=== PATIENT | male | born 1960 | race Caucasian/White ===

== ENCOUNTER 2020-03-10 07:49 | Inpatient (IN) | payer MEDICAID ==
[~2020-03-10] VITALS: Ht 185.4 cm; Wt 70.7 kg
[2020-03-10] MEDS ORDERED: ketorolac tromethamine 15mg/ml inj. IV ONE (08:55)
[2020-03-10] MEDS ORDERED: normal saline 1000ML IV soln IVB ONE (08:55)
[2020-03-10] MEDS ORDERED: ondansetron/PF 4mg/2ml inj IV ONE (08:55)
[2020-03-10 09:12] LABS: BASOPHILS # (AUTO) 0.1 X10'3 (0-0.2); BASOPHILS % (AUTO) 0.4 % (0-1); EOSINOPHILS % (AUTO) 0.2 % (0-6); HEMATOCRIT 43.8 % (42.0-52.0); HEMOGLOBIN 14.7 g/dl (14.0-17.9); LYMPHOCYTES # (AUTO) 0.9 X10'3 (1.1-4.8); LYMPHOCYTES % (AUTO) 4.6 % (21-51); MEAN CORPUSCULAR HGB CONC 33.6 g/dL (33.0-36.5); MEAN CORPUSCULAR VOLUME 92.2 FL (78-98); MONOCYTES # (AUTO) 0.8 X10'3 (0-0.9); MONOCYTES % (AUTO) 3.8 % (2-12); PLATELET COUNT 356 X10'3 (140-440); RED BLOOD COUNT 4.75 X10'6 (4.70-6.10); RED CELL DISTRIBUTION WIDTH 14.6 % (11.5-14.5); WHITE BLOOD COUNT 19.8 X10'3 (4.5-11.0)
[2020-03-10 09:31] LABS: ALANINE AMINOTRANSFERASE 28 U/L (12-78); ALBUMIN 3.5 G/DL (3.4-5.0); ALBUMIN/GLOBULIN RATIO 1.3 (1.1-1.5); ALKALINE PHOSPHATASE 67 IU/L (46-116); ANION GAP 10 (8-16); ASPARTATE AMINO TRANSFERASE 13 U/L (10-37); BILIRUBIN,TOTAL 0.7 MG/DL (0.1-1.0); BLOOD UREA NITROGEN 24 MG/DL (7-18); BUN/CREATININE RATIO 25.5 (5.4-32.0); CALCIUM 8.4 MG/DL (8.5-10.1); CHLORIDE 99 MMOL/L (99-107); CREATININE 0.94 MG/DL (0.60-1.10); GLUCOSE 152 MG/DL (70-104); LIPASE 571 U/L (73-393); POTASSIUM 3.5 MMOL/L (3.5-5.1); SODIUM 135 MMOL/L (135-145); TOTAL CARBON DIOXIDE 25.6 MMOL/L (24-32); TOTAL PROTEIN 6.3 G/DL (6.4-8.2); eGFR 82 ML/MIN
[2020-03-10] MEDS ORDERED: LIDOcaine Viscous 15ml cup MM PRN (10:20)
[2020-03-10] MEDS: morphine 2 MG/ML inj. syringe IV PRN ×3 (10:28→15:25)
[2020-03-10] MEDS ORDERED: MIDAZolam 5mg/ml 2ml vial IV ONE (10:40)
[2020-03-10] MEDS ORDERED: metroNIDAZOLE-Flagyl 500mg/NS 100 ML IV STA (11:15)
[2020-03-10] MEDS ORDERED: ciprofloxacin lact 400MG/200ML 200 ML IV STA (11:15)
[2020-03-10] MEDS ORDERED: magnesium hydroxide 30ml (MOM) UD suspension PO PRN (12:10)
[2020-03-10] MEDS ORDERED: morphine 2 MG/ML inj. syringe IV PRN (12:10)
[2020-03-10] MEDS ORDERED: acetaminophen 325mg tablet PO PRN (12:10)
--- NOTE | 2020-03-10 12:36 | NUR ---
RELIEVING RN FOR BREAK, PT IS SLEEPING QUIETLY ON GURNEY, RESP EVEN AND UNLABORED, PT IS EASILY AROUSEABLE, NGTUBE CONNECTED TO LOW INTERMITTMENT SUCTION, DRAINING LIGHT BROWN FLUID, SR ON THE MONITOR, NO ECTOPY, WAITING TO BE EVALUATED
[2020-03-10] MEDS: normal saline 1000ml 1,000 ML IV SCH ×2 (12:46→22:06)
[2020-03-10] MEDS ORDERED: CIME300T PO (13:09)
[2020-03-10] MEDS ORDERED: SERT25TA5 PO (13:09)
[2020-03-10] MEDS ORDERED: GABA300C PO (13:09)
[2020-03-10] MEDS ORDERED: DICY20TA11 PO (13:09)
[2020-03-10] MEDS ORDERED: PRED10TA23 PO (13:09)
--- NOTE | 2020-03-10 14:26 | NUR ---
Assumed care of patient, arrived in stable condition. Obtained vital signs, 2 RN skin check completed. Placed on tele and hooked up to low intermitten suction. Will continue to monitor closely.
[2020-03-10 14:28] VITALS: BP 127/68
[2020-03-10 15:00] VITALS: BP 103/76
[2020-03-10] MEDS: metroNIDAZOLE-Flagyl 500mg/NS 100 ML IV SCH (15:24)
[2020-03-10] MEDS ORDERED: famotidine 20mg tablet PO SCH (17:30)
--- NOTE | 2020-03-10 17:40 | NUR ---
PAGER ID: [phone] MESSAGE: [phone] Zeus Valentina - Requesting sleeping med for tonight. Did you mean to put pepcid PO? Michelle SHOEMAKER [id number]
--- NOTE | 2020-03-10 17:56 | NUR ---
PAGER ID: [phone] MESSAGE: [id number] Zeusjocy Montgomery - Requesting sleeping med for tonight. Did you mean to put pepcid PO or do you want IV? Michelle SHOEMAKER [phone]
[2020-03-10 18:00] VITALS: BP 110/74
--- NOTE | 2020-03-10 18:14 | NUR ---
Patient is sleeping at the moment. NG is draining appropriately. Pepcid not administered as nursing needs clarification on route. MD paged X2, will report to NOC nurse and clarify with night time MD since no return call.
--- NOTE | 2020-03-10 18:36 | NUR ---
Problems reprioritized. Patient report given, questions answered & plan of care reviewed with Karen SHOEMAKER. Pt. talking on cell phone, offers no others complaints.
[2020-03-10 19:37] LABS: CLARITY,URINE CLEAR (Clear); COLOR,URINE YELLOW (Yellow); GLUCOSE, URINE NEGATIVE (Neg); KETONES,URINE 15 mg/dl (Neg); LEUKOCYTE ESTERASE ,URINE TRACE (Neg); NITRITES, URINE NEGATIVE (Neg); OCCULT BLOOD,URINE NEGATIVE (Neg); PROTEIN,URINE NEGATIVE (Neg)
[2020-03-10 19:42] LABS: UA COLLECTION TYPE NON-SPECIFIED
[2020-03-10 19:43] LABS: BACTERIA,URINE NONE SEEN /HPF (Neg); RBC,URINE 0-2 /HPF (0-2); SQUAMOUS EPITHELIAL CELL,UR FEW /LPF (FEW); WBC,URINE 0-4 /HPF (0-4)
[2020-03-10] MEDS: famotidine/PF 10 mg/ml inj IV SCH (20:39)
[2020-03-10] MEDS: ciprofloxacin lact 400MG/200ML 200 ML IV SCH (20:39)
[2020-03-10] MEDS: gabapentin 300mg capsule PO SCH (20:40)
[2020-03-10] MEDS ORDERED: ketorolac trometh. 30mg/ml inj. IV ONE (21:50)
[2020-03-10] MEDS ORDERED: diphenhydrAMINE 50 mg/ml inj IV ONE (21:50)
[2020-03-10 22:00] VITALS: BP 112/40
[2020-03-11] MEDS: metroNIDAZOLE-Flagyl 500mg/NS 100 ML IV SCH ×4 (00:15→23:26)
[2020-03-11] MEDS: hydrocortisone sod succ/PF 100mg/2ml inj. IV SCH ×4 (00:15→23:26)
[2020-03-11 02:00] VITALS: BP 110/66
[2020-03-11] MEDS ORDERED: pantoprazole 40 MG vial IV ONE (05:25)
[2020-03-11 06:00] VITALS: BP 117/77
--- NOTE | 2020-03-11 06:09 | NUR ---
Problems reprioritized. Patient report given, questions answered & plan of care reviewed with Sowmya SHOEMAKER.
[2020-03-11 06:10] LABS: BASOPHILS % (AUTO) 0.3 % (0-1); EOSINOPHILS % (AUTO) 0.2 % (0-6); HEMATOCRIT 37.5 % (42.0-52.0); HEMOGLOBIN 12.9 g/dl (14.0-17.9); LYMPHOCYTES # (AUTO) 0.4 X10'3 (1.1-4.8); MEAN CORPUSCULAR HGB CONC 34.4 g/dL (33.0-36.5); MONOCYTES # (AUTO) 0.2 X10'3 (0-0.9); MONOCYTES % (AUTO) 3.7 % (2-12); NEUTROPHILS # (AUTO) 5.2 X10'3 (1.8-7.7); NEUTROPHILS % (AUTO) 88.8 % (42-75); PLATELET COUNT 261 X10'3 (140-440); RED BLOOD COUNT 4.04 X10'6 (4.70-6.10); RED CELL DISTRIBUTION WIDTH 13.9 % (11.5-14.5); WHITE BLOOD COUNT 5.9 X10'3 (4.5-11.0)
[2020-03-11 06:17] LABS: ALBUMIN 2.7 G/DL (3.4-5.0); ANION GAP 8 (8-16); BLOOD UREA NITROGEN 28 MG/DL (7-18); BUN/CREATININE RATIO 26.7 (5.4-32.0); CALCIUM 7.7 MG/DL (8.5-10.1); CHLORIDE 104 MMOL/L (99-107); CREATININE 1.05 MG/DL (0.60-1.10); GLUCOSE 114 MG/DL (70-104); POTASSIUM 4.1 MMOL/L (3.5-5.1); SODIUM 138 MMOL/L (135-145); TOTAL CARBON DIOXIDE 25.8 MMOL/L (24-32); eGFR 72 ML/MIN
--- NOTE | 2020-03-11 06:37 | NUR ---
Patient in room PCU 3016. I have received report from NAVID Jones and had the opportunity to ask questions and assume patient care.
[2020-03-11] MEDS: normal saline 1000ml 1,000 ML IV SCH ×2 (08:06→13:12)
[2020-03-11] MEDS: famotidine/PF 10 mg/ml inj IV SCH ×2 (08:07→19:36)
[2020-03-11] MEDS: sertraline 25mg tablet PO SCH (08:07)
[2020-03-11] MEDS: enoxaparin 40mg/0.4ml syringe SUBCUT SCH (08:08)
[2020-03-11] MEDS: ciprofloxacin lact 400MG/200ML 200 ML IV SCH ×2 (09:44→19:36)
[2020-03-11 11:00] VITALS: BP 128/82
--- NOTE | 2020-03-11 12:34 | NUR ---
PAGER ID: [phone] MESSAGE: [id number]. pt. Zeus Millan. pt. is wondering if he could eat something. maybe broth? bowel sounds present and passing gas. thank you. Sowmya [phone]
--- NOTE | 2020-03-11 14:50 | NUR ---
PAGER ID: [phone] MESSAGE: [id number]. Zeus Franklin. 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 He now wants Dr. Troy. thank you. Sowmya [phone]
[2020-03-11 15:00] VITALS: BP 122/78
[2020-03-11] MEDS: mag hydrox/Alum hydrox/simeth 30ml oral suspension PO PRN (15:48)
[2020-03-11 18:00] VITALS: BP 141/91
--- NOTE | 2020-03-11 18:29 | NUR ---
Problems reprioritized. Patient report given, questions answered & plan of care reviewed with NAVID Kearns.
[2020-03-11] MEDS: ondansetron/PF 4mg/2ml inj IV PRN (19:36)
[2020-03-11] MEDS ORDERED: diphenhydrAMINE 50 mg/ml inj IV ONE (20:20)
[2020-03-11] MEDS: gabapentin 300mg capsule PO SCH (21:28)
[2020-03-11 22:00] VITALS: BP 131/78
[2020-03-11] MEDS: morphine 2 MG/ML inj. syringe IV PRN (23:29)
[2020-03-12] MEDS: normal saline 1000ml 1,000 ML IV SCH (01:13)
[2020-03-12] MEDS: mag hydrox/Alum hydrox/simeth 30ml oral suspension PO PRN (01:48)
[2020-03-12] MEDS: ondansetron/PF 4mg/2ml inj IV PRN (04:49)
[2020-03-12 06:08] LABS: BASOPHILS % (AUTO) 0.1 % (0-1); EOSINOPHILS % (AUTO) 0 % (0-6); HEMATOCRIT 34.3 % (42.0-52.0); HEMOGLOBIN 11.8 g/dl (14.0-17.9); LYMPHOCYTES # (AUTO) 0.4 X10'3 (1.1-4.8); LYMPHOCYTES % (AUTO) 5.2 % (21-51); MEAN CORPUSCULAR HEMOGLOBIN 31.6 PG (27.0-31.0); MEAN CORPUSCULAR HGB CONC 34.4 g/dL (33.0-36.5); MEAN CORPUSCULAR VOLUME 92.1 FL (78-98); MEAN PLATELET VOLUME 6.9 FL (7.4-10.4); MONOCYTES # (AUTO) 0.3 X10'3 (0-0.9); MONOCYTES % (AUTO) 3.5 % (2-12); NEUTROPHILS # (AUTO) 6.5 X10'3 (1.8-7.7); NEUTROPHILS % (AUTO) 91.2 % (42-75); PLATELET COUNT 240 X10'3 (140-440); RED BLOOD COUNT 3.72 X10'6 (4.70-6.10); RED CELL DISTRIBUTION WIDTH 14.2 % (11.5-14.5); WHITE BLOOD COUNT 7.1 X10'3 (4.5-11.0)
[2020-03-12 06:19] LABS: ALBUMIN 2.3 G/DL (3.4-5.0); ANION GAP 10 (8-16); BLOOD UREA NITROGEN 19 MG/DL (7-18); BUN/CREATININE RATIO 23.2 (5.4-32.0); CALCIUM 7.6 MG/DL (8.5-10.1); CHLORIDE 104 MMOL/L (99-107); CREATININE 0.82 MG/DL (0.60-1.10); GLUCOSE 143 MG/DL (70-104); POTASSIUM 3.6 MMOL/L (3.5-5.1); SODIUM 136 MMOL/L (135-145); TOTAL CARBON DIOXIDE 21.8 MMOL/L (24-32); eGFR > 90 ML/MIN
--- NOTE | 2020-03-12 06:54 | NUR ---
Problems reprioritized. Patient report given, questions answered & plan of care reviewed with NAVID Wright.
[2020-03-12 07:00] VITALS: BP 131/83
[2020-03-12] MEDS: metroNIDAZOLE-Flagyl 500mg/NS 100 ML IV SCH (08:55)
[2020-03-12] MEDS: ciprofloxacin lact 400MG/200ML 200 ML IV SCH (08:56)
[2020-03-12] MEDS: hydrocortisone sod succ/PF 100mg/2ml inj. IV SCH (08:58)
[2020-03-12] MEDS: sertraline 25mg tablet PO SCH (08:58)
[2020-03-12] MEDS: famotidine/PF 10 mg/ml inj IV SCH (08:58)
[2020-03-12] MEDS: enoxaparin 40mg/0.4ml syringe SUBCUT SCH (08:58)
--- NOTE | 2020-03-12 10:29 | NUR ---
After speaking with MD at bedside and getting ok for liquid diet, patient has had 3 cups of broth and is tolerating it well. He has been up and walking around the unit fine. Had one medium sized soft BM. Requesting soft tray for lunch. Will continue to monitor.
[2020-03-12 11:00] VITALS: BP 131/69
[2020-03-12] MEDS ORDERED: METR-159 PO (13:13)
[2020-03-12] MEDS ORDERED: CIPR-230 PO (13:13)
[2020-03-12] MEDS ORDERED: PRED20TA PO (13:13)
--- NOTE | 2020-03-12 14:18 | NUR ---
Per MD orders, patient stable for discharge home. New prescriptions called in to pharmacy of preference. Discharge packet reviewed with patient at bedside and all questions answered to patient satisfaction. PIV discontinued, cannula intact. NGT discontinued; tolerated well. All belongings sent with patient including home meds stored in pharmacy. Transferred to private vehicle accompanied by aide.
[2020-03-12] MEDS ORDERED: famotidine 10mg tablet PO SCH (20:00)
== END 2020-03-12 14:37 | disposition home or self-care (01) | DRG 245 ==
LOC: ER 07:51 → ED HOLD 12:06 → PCU 3S 14:06
PROVIDERS: ADMIT Family Medicine; ATTEND Family Medicine
PROC: 0D9670Z Drainage of Stomach with Drainage Device, Via Natural or Artificial Opening (ICD-10-PCS; principal; 2020-03-10)
DX: K50.90 Crohn's disease, unspecified, without complications (principal); K56.609 Unspecified intestinal obstruction, unspecified as to partial versus complete obstruction; D72.829 Elevated white blood cell count, unspecified; F12.90 Cannabis use, unspecified, uncomplicated; F32.9 Major depressive disorder, single episode, unspecified; Z87.891 Personal history of nicotine dependence
CPT/HCPCS: 36415; 74018; 74019; 80048; 80053; 81001; 82948; 83690; 85025; 87081; 87088; 93005; 99285; C9113; G0378; J0744; J1200; J1650; J1720; J1885; J2250; J2270; J2405; J3490; J7030

== ENCOUNTER 2021-04-02 11:23 | Day surgery (SDC) | payer MEDICAID ==
[~2021-04-02] VITALS: Ht 185.4 cm; Wt 83.6 kg
[~2021-04-02 11:23] MED LIST: CIME300T PO; CIPR-202 PO; DICY20TA11 PO; GABA300C PO; METR-159 PO; PRED20TA PO; SERT-432 PO
[2021-04-02 11:55] VITALS: BP 120/67
[2021-04-02] MEDS ORDERED: APIX5TAB3 PO (11:55)
[2021-04-02 12:00] VITALS: BP 120/67
[2021-04-02] MEDS ORDERED: LIDOcaine 1%/PF 5ML 10 MG/ML VIAL ONE (12:14)
== END 2021-04-02 13:25 | disposition home or self-care (01) ==
LOC: SSTAY O 11:23
PROVIDERS: ATTEND Radiology Diagnostic Radiology
DX: Z45.2 Encounter for adjustment and management of vascular access device (principal); C18.0 Malignant neoplasm of cecum; F41.9 Anxiety disorder, unspecified; F32.9 Major depressive disorder, single episode, unspecified; Z93.3 Colostomy status; Z87.19 Personal history of other diseases of the digestive system; Z86.718 Personal history of other venous thrombosis and embolism; Z79.01 Long term (current) use of anticoagulants; Z79.899 Other long term (current) drug therapy
CPT/HCPCS: 36590